=== PATIENT | female | born 1950 | race Caucasian/White ===

== ENCOUNTER → 2016-09-24 | Outpatient (CLI) | payer BC ==
[~2016-09-24] MED LIST: CLR10 PO; IBUP-103 PO; PATADAY 2% TOP; TRIA3AER NAE
[2016-09-24 12:02] LABS: ALT/SGPT 51 U/L (12-78); AST/SGOT 28 U/L (15-37); BLOOD UREA NITROGEN 19 mg/dl (7-18); CARBON DIOXIDE 27 mmol/L (21-32); CHLORIDE 106 mmol/L (98-107); CREATININE 0.93 mg/dl (0.60-1.20); GLUCOSE 98 mg/dl (70-99); POTASSIUM 3.6 mmol/L (3.5-5.1); SODIUM 143 mmol/L (136-145)
[2016-09-24 12:13] LABS: ALB/GLOB RATIO 1.1 (0.9-2); ALKALINE PHOSPHATASE 95 U/L (45-117); CHOLESTEROL 241 mg/dl (0-200); CHOLESTEROL/HDL RATIO 3.8; HDL CHOLESTEROL 64 mg/dl; LDL CHOLESTEROL CALCULATED 132 mg/dl; TRIGLYCERIDES 225 mg/dl (0-150); VERY LOW DENSITY LIPOPROT CALC 45 mg/dl
== END | disposition home or self-care (01) ==
LOC: C.LABBC 08:02
PROVIDERS: ATTEND Internal Medicine
DX: E78.5 Hyperlipidemia, unspecified (principal); E03.9 Hypothyroidism, unspecified

== ENCOUNTER → 2016-11-07 | Outpatient (CLI) | payer BC ==
[2016-11-07 11:27] LABS: BASO % 0.4 %; BASO ABS # 0.03 K/uL (0-0.2); COMPLETE YES; EOS % 3.7 %; HEMATOCRIT 43.2 % (37-47); IG% 0.1 %; LYMPH ABS # 2.23 K/uL (1.2-3.4); MEAN CELL VOLUME 90.6 fL (80-100); MEAN CORPUSCULAR HEMOGLOBIN 30.4 pg (25-34); MEAN CORPUSCULAR HGB CONC 33.6 g/dl (32-36); MEAN PLATELET VOLUME 11.8 fL (7.4-10.4); MONO % 9.6 %; NEUT % 53.2 %; PLATELET COUNT 279 K/uL (130-400); RED BLOOD COUNT 4.77 M/uL (4.2-5.4); WHITE BLOOD COUNT 6.75 K/uL (4.8-10.8)
[2016-11-07 11:36] LABS: THYROID STIMULATING HORMONE 2.4 uIu/ml (0.300-4.500)
== END | disposition home or self-care (01) ==
LOC: C.LABBC 07:58
PROVIDERS: ATTEND Internal Medicine
DX: E03.9 Hypothyroidism, unspecified (principal); R10.13 Epigastric pain

== ENCOUNTER → 2017-01-03 | Outpatient (CLI) | payer BC | END | disposition home or self-care (01) | LOC: C.LABBC 07:39 | PROVIDERS: ATTEND Internal Medicine | DX: E03.9 Hypothyroidism, unspecified (principal) ==

== ENCOUNTER → 2017-02-08 | Outpatient (CLI) | payer BC ==
--- NOTE | 2017-02-08 16:38 | MAMMOGRAPHY REPORT ---
BILATERAL DIGITAL SCREENING MAMMOGRAM WITH CAD: 02/08/2017 CLINICAL HISTORY: Routine screening. Patient has no complaints. TECHNIQUE: Current study was also evaluated with a Computer Aided Detection (CAD) system. Bilateral CC and MLO views were obtained. COMPARISON: Comparison is made to exams dated: 01/11/2016 mammogram, 12/27/2014 mammogram, 12/24/2013 fátima mogram, 11/04/2012 mammogram, 10/30/2011 mammogram, and 08/21/2010 mammogram - [facility]. BREAST COMPOSITION: The tissue of both breasts is heterogeneously dense, which may obscure small mas ses. FINDINGS: No suspicious masses, calcifications, or areas of architectural distortion are noted in ei ther breast. There has been no significant interval change compared to prior exams. IMPRESSION: ACR BI-RADS CATEGORY 1: NEGATIVE There is no mammographic evidence of malignancy. A 1 year screening mammogram is recommended. The pa tient will receive written notification of the results. Approximately 10% of breast cancers are not detected with mammography. A negative mammographic report should not delay biopsy if a clinically suggestive mass is present. Leighann Gonzalez M.D. /:02/08/2017 16:13:40 Veterinarian: Samanta WHITE(Gideon)(Gin)(BD), [facility] letter sent: Normal 1/2 BI-RADS Code: ACR BI-RADS Category 1: Negative
== END | disposition home or self-care (01) ==
LOC: C.MAMM 14:49
PROVIDERS: ATTEND Obstetrics & Gynecology
DX: Z12.31 Encounter for screening mammogram for malignant neoplasm of breast (principal)

== ENCOUNTER → 2017-06-10 | Outpatient (CLI) | payer BC | END | disposition home or self-care (01) | LOC: C.LABBC 08:08 | PROVIDERS: ATTEND Internal Medicine | DX: E03.9 Hypothyroidism, unspecified (principal) ==

== ENCOUNTER → 2017-09-26 | Outpatient (CLI) | payer OTHER ==
[2017-09-26 10:54] LABS: HEMATOCRIT 43.4 % (37-47); HEMOGLOBIN 14.5 g/dL (12.0-16.0); MEAN CELL VOLUME 91.8 fL (80-100); MEAN CORPUSCULAR HEMOGLOBIN 30.7 pg (25-34); MEAN CORPUSCULAR HGB CONC 33.4 g/dl (32-36); MEAN PLATELET VOLUME 11.7 fL (7.4-10.4); PLATELET COUNT 283 K/uL (130-400); RED CELL DISTRIBUTION WIDTH CV 14.8 % (11.5-14.5); RED CELL DISTRIBUTION WIDTH SD 50.1 fL (36.4-46.3); WHITE BLOOD COUNT 6.07 K/uL (4.8-10.8)
[2017-09-26 11:30] LABS: ALBUMIN 3.9 gm/dl (3.4-5.0); ALT/SGPT 31 U/L (12-78); AST/SGOT 20 U/L (15-37); BLOOD UREA NITROGEN 15 mg/dl (7-18); CALCIUM 8.7 mg/dl (8.5-10.1); CARBON DIOXIDE 27 mmol/L (21-32); CREATININE 0.87 mg/dl (0.60-1.20); GLUCOSE 96 mg/dl (70-99); POTASSIUM 3.8 mmol/L (3.5-5.1); SODIUM 139 mmol/L (136-145)
[2017-09-26 11:41] LABS: ALKALINE PHOSPHATASE 83 U/L (45-117); CHOLESTEROL 220 mg/dl (0-200); LDL CHOLESTEROL CALCULATED 118 mg/dl; TOTAL PROTEIN 7.3 gm/dl (6.4-8.2)
== END | disposition home or self-care (01) ==
LOC: C.LABBC 08:04
PROVIDERS: ATTEND Internal Medicine
DX: K76.0 Fatty (change of) liver, not elsewhere classified (principal); E78.5 Hyperlipidemia, unspecified; E03.9 Hypothyroidism, unspecified

== ENCOUNTER → 2017-10-10 | Outpatient (CLI) | payer OTHER ==
--- NOTE | 2017-10-10 14:52 | DIAGNOSTIC IMAGING REPORT ---
CHEST 2 VIEWS ROUTINE HISTORY: 67 years-old Female WHEEEZING acute wheezing COMPARISON: Chest radiographs 05/24/2014 TECHNIQUE: PA and lateral views of the chest FINDINGS: Cardiomediastinal and hilar silhouettes are within normal limits. Mild hyperinflation. There is no pneumothorax, pleural effusion, focal airspace consolidation or overt pulmonary edema. Bones of the chest appear grossly intact. IMPRESSION: Mild hyperinflation without acute process. The above report was generated using voice recognition software. It may contain grammatical, syntax or spelling errors. Electronically signed by: Aj Gutiérrez M.D. 10/10/2017 2:51 PM Dictated Date/Time: 10/10/2017 2:46 PM
== END | disposition home or self-care (01) ==
LOC: C.RADBC 14:33
PROVIDERS: ATTEND Internal Medicine
DX: R06.2 Wheezing (principal)

== ENCOUNTER → 2018-04-14 | Outpatient (CLI) | payer OTHER ==
--- NOTE | 2018-04-15 06:58 | MAMMOGRAPHY REPORT ---
BILATERAL DIGITAL SCREENING MAMMOGRAM TOMOSYNTHESIS WITH CAD: 04/14/2018 CLINICAL HISTORY: Routine screening. TECHNIQUE: The study was acquired using full field digital technology and interpreted from soft copy. Breast tomosynthesis in addition to standard 2D mammography was performed. Current study was also ev aluated with a Computer Aided Detection (CAD) system. COMPARISON: Comparison is made to exams dated: 02/08/2017 mammogram, 01/11/2016 mammogram, 12/27/2014 ma mmogram, 12/24/2013 mammogram, 11/04/2012 mammogram, and 10/30/2011 mammogram - [facility]. BREAST COMPOSITION: The tissue of both breasts is heterogeneously dense, which may obscure small mass es. FINDINGS: A linear scar marker overlies the periareolar right breast. There is stable focal asymmetr y in the upper outer posterior right breast. No suspicious mass, architectural distortion or cluster of microcalcifications is seen. IMPRESSION: ACR BI-RADS CATEGORY 1: NEGATIVE There is no mammographic evidence of malignancy. A 1 year screening mammogram is recommended.( 019) The patient will receive written notification of the results. Some breast cancers are not detected with mammography. A negative mammographic report should not bart y biopsy if a clinically suggestive mass is present. Sandy Bell M.D. ay/:04/14/2018 08:13:30 Creative Engagement Director: RT Beny(Gideon)(M), [facility] letter sent: Normal 1/2 BI-RADS Code: ACR BI-RADS Category 1: Negative
== END | disposition home or self-care (01) ==
LOC: C.MAMM 07:44
PROVIDERS: ATTEND Internal Medicine
DX: Z12.31 Encounter for screening mammogram for malignant neoplasm of breast (principal)

== ENCOUNTER → 2018-04-16 | Outpatient (CLI) | payer OTHER | END | disposition home or self-care (01) | LOC: C.LABBC 08:11 | PROVIDERS: ATTEND Internal Medicine | DX: E03.9 Hypothyroidism, unspecified (principal); E78.5 Hyperlipidemia, unspecified ==

== ENCOUNTER 2019-03-25 11:26 | Observation (INO) ==
[2019-03-25 12:21] LABS: Basophils # (auto) 0.01 K/uL (0-0.2); Basophils % (auto) 0.1 %; Eosinophils # (auto) 0.07 K/uL (0-0.5); Eosinophils % (auto) 0.7 %; Hematocrit (blood only) 43.6 % (37-47); Hemoglobin 14.9 g/dL (12.0-16.0); Immature Granulocytes # (auto) 0.03 K/uL (0.00-0.02); Immature Granulocytes % (auto) 0.3 %; Lymphocytes # (auto) 1.63 K/uL (1.2-3.4); Mean Corpuscular Hgb Conc 34.2 g/dL (32-36); Mean Corpuscular Volume 89.7 fL (80-100); Mean Platelet Volume 11.3 fL (7.4-10.4); Monocytes # (auto) 0.61 K/uL (0.11-0.59); Neutrophils # (auto) 7.83 K/uL (1.4-6.5); Neutrophils % (auto) 76.9 %; Platelet Count 255 K/uL (130-400); RDW Coefficient of Variation 14.2 % (11.5-14.5); RDW Standard Deviation 46.9 fL (36.4-46.3); Red Blood Count 4.86 M/uL (4.2-5.4); White Blood Count 10.18 K/uL (4.8-10.8)
[2019-03-25 12:43] LABS: Albumin Globulin Ratio 1.2 (0.9-2); Albumin Level 4.3 gm/dl (3.4-5.0); BUN Creatinine Ratio 14.9 (10-20); Bilirubin,Total 0.5 mg/dl (0.2-1); Calcium 9.6 mg/dl (8.5-10.1); Creatinine Clr Calc Pharmacy 63.3 ml/min; Est GFR (African American) 65.9; Est GFR (Non-African American) 56.9; Globulin 3.7 gm/dl (2.5-4.0)
[2019-03-25 12:48] LABS: Potassium 4.2 mmol/L (3.5-5.1)
[2019-03-25 12:53] LABS: Magnesium 2.3 mg/dl (1.8-2.4)
--- NOTE | 2019-03-25 13:53 | CT Scan Report ---
HEAD CT NONCONTRAST CT DOSE: 537.48 mGy.cm HISTORY: syncope TECHNIQUE: Multiaxial CT images of the head were performed without the use of intravenous contrast. A utomated exposure control was utilized for this study. A dose lowering technique was utilized adheri ng to the principles of ALARA. Comparison: None. Findings: The paranasal sinuses and mastoid air cells are clear. The calvarium and skull base are int act. The ventricles and sulci are within normal limits. There is no mass, hematoma, midline shift, or acute infarct. Impression: No acute intracranial abnormality. Electronically signed by: Zeferino Craig M.D. 03/25/2019 1:51 PM
[2019-03-25 14:33] LABS: Appearance Urine Clear (Clear); Bacteria Urine Automated Negative (Negative); Bilirubin Urine Negative (Negative); Blood Urine Negative (Negative); Cast Urine Automated 0 /lpf (0-5); Color Urine Yellow; Glucose Urine UA Negative (Negative); Ketones Urine Negative (Negative); Leukocyte Esterase Urine 1+ (Negative); Nitrite Urine Negative (Negative); Protein Urine Negative (Negative); RBC Urine Automated 0-4 /hpf (0-4); Specific Gravity Urine 1.009 (1.000-1.030); Urobilinogen Urine Negative (Negative)
--- NOTE | 2019-03-25 14:52 | History & Physical Report ---
Date of Service March 25, 2019 Assessment & Plan (1) Altered mental status: Resolved. Thought to be due to transient hypoglycemia. Will obtain cardiac echo and carotid Doppler study Present on Admission?: Yes (2) Hypoglycemia: Suspected transient hypoglycemic episode this morning. IV fluids with dextrose. Monitor orthostatic vital signs Present on Admission?: Yes (3) Primary hypothyroidism: Check free T4 level. Continue replacement therapy Present on Admission?: Yes (4) DVT prophylaxis: Early ambulation Present on Admission?: Yes History of Present Illness Chief Complaint: Altered mental status Primary Care Provider: Andrew Regalado MD 68-year-old white female in good health who is exercising today when she was noted by her monkey trainer to have altered mental status, weakness, confusion. There was no syncope. Her symptoms resolved after drinking Gatorade. She currently is asymptomatic. She cannot recollect the event. She denies feeling any chest pain, shortness of breath, palpitations. She ate a breakfast of toast and orange juice at approximately 8 AM and her symptoms occurred this morning at 10 AM with exercise. I suspect she had transient hypoglycemia causing the transient altered mental status. She will be placed in observation for further assessment. Head CT scan is unremarkable. EKG reveals normal sinus rhythm with nonspecific T wave changes. Urine analysis is pending. Allergies Allergy/AdvReac Type Severity Reaction Status Date / Time Sulfa (Sulfonamide Allergy Mild Unknown Unverified 03/25/19 13:01 Antibiotics) azithromycin Allergy Unknown Verified 03/25/19 13:01 X-RAY DYE Allergy Severe ANAPHYLAXIS Uncoded 03/25/19 13:01 [id number] Allergy Intermediate unknown Uncoded 03/25/19 13:01 [id number] Allergy Mild Unknown Uncoded 03/25/19 13:01 IODINE SOLUTIONS Allergy Unknown from 's Uncoded 03/25/19 13:01 ofc record Home Medications Home Medications Medication Instructions Recorded Confirmed Type fluticasone propionate 50 1 sprays INTNAS DAILY 03/14/19 03/25/19 History mcg/actuation nasal spray,suspension levothyroxine 75 mcg tablet 75 mcg PO DAILY #90 tab 03/14/19 03/25/19 History Past Med/Surg History Medical History Primary hypothyroidism (Chronic) Hypoglycemia (Acute) Altered mental status (Acute) S/P tooth extraction Surgical History History of breast surgery S/P colonoscopy S/P dilation and curettage S/P hysterectomy S/P tonsillectomy and adenoidectomy Family History Father Lung cancer Hypertension FH: CABG (coronary artery bypass surgery) Coronary heart disease Mother Lung cancer Valvular heart disease Sister Hyperlipidemia Son Hyperlipidemia Grandmother Diabetes Social History Communication Ability: Effective Visual Impairment: No Limitations Hearing Ability: Normal marital status: Single current occupational status: employed Feels Safe at Home: Yes Smoking Status: Never smoker Hx Alcohol Use: Yes Alcohol Intake Frequency Comment: Social Drinker Hx Substance Use: No Physical Activity Frequency: Other Physical Activity Frequency Comment: Regularly Review of Systems Review of Systems: Constitutional-no fever or chills ENT-no blurred vision, no double vision, no epistaxis, no sore throat Respiratory-no cough, no wheezing, no shortness of breath Cardiac-no palpitations, no chest pain, no syncope GI-no nausea, vomiting, diarrhea, melena, hematochezia -no urinary retention, no urinary incontinence, no dysuria, no hematuria Musculoskeletal-no joint pain, no muscle tenderness Skin-no bruising, no rashes, no pruritus Neuro-transient confusion and generalized weakness this morning which has resolved Psych-no depression, no anxiety Physical Exam Physical Exam: General-alert and oriented x3, no fevers, no chills HEENT-head atraumatic and normocephalic, TMs intact bilaterally, pupils equal and reactive to light, extraocular muscles intact Neck-no lymphadenopathy or thyromegaly, trachea midline Chest-clear to auscultation percussion. No rales wheezing or rhonchi Cardiac-regular rate and rhythm, normal S1 and S2, no murmurs Abdomen-normal bowel sounds, nontender, no hepatosplenomegaly Extremities-no cyanosis, clubbing, or edema Neuro-cranial nerves II through XII intact, motor and sensory function within normal limits, strength symmetrical 5/5, no focal deficits Psych-normal affect, normal mood Results & Data Vital Signs (Past 12 Hours) Vital Signs Temp Pulse Pulse Resp BP BP Pulse Ox 03/25/19 13:29 93 H 18 108/80 96 03/25/19 11:31 36.6 C 96 H 16 174/83 H 99 Laboratory Results 03/25/19 12:09 03/25/19 12:09 PG Care Time/CCT Total # of Minutes Spent Total Time Spent with Patient: Total time spent is greater than 50% in coordination of care (as documented) at patient's floor/unit and/or counseling patient:
[2019-03-25] MEDS ORDERED: LORazepam 1 MG TAB ONE (15:59)
[2019-03-25] MEDS ORDERED: LORazepam 0.5 MG TAB ONE (15:59)
[2019-03-25] MEDS ORDERED: LORazepam 1 MG TAB PO STA (16:06)
[2019-03-25] MEDS ORDERED: ALUMINUM/MAGNESIUM SUSP 30 ML UDC PO PRN (17:14)
[2019-03-25] MEDS ORDERED: ONDANSETRON INJ 2 MG/ML 2 ML VIAL IV PRN (17:14)
[2019-03-25] MEDS ORDERED: ACETAMINOPHEN 325 MG TAB PO PRN (17:14)
--- NOTE | 2019-03-25 17:49 | Emergency Department Note ---
Entered by Ravinder Capone acting as a scribe for History of Present Illness General Chief complaint: Syncope Stated complaint: BLACKED OUT, MEMORY LOSS, CONFUSION Time Seen by Provider: 03/25/19 12:11 Source: patient History of Present Illness Provider complaint: Syncope Onset (ago): hour(s) (Just prior to arrival) Location: head Pain Consistency: + other (Episodic ) Maximum Pain Intensity: 0 Relieved By: + none Exacerbated By: + none Associated symptoms: + weakness and + other (Positive dizzy; Positive lightheadedness ); no chest pain and no shortness of breath The patient is a 68 year old female who presents to the Emergency Room following a syncopal episode that took place while she was at the gym just prior to arrival. The patient states she was exercising when she became dizzy, lightheaded and passed out. She states that people at the gym helped her sit down and gave her Gatorade. The patient notes that she does not remember the event and is reporting the history based on what she was told. The patient reports that she did not hit her head during the episode. The patient denies any chest pain or shortness of breath during the incident as well as any hemoptysis. Prior to going to the gym, the patient did have some toast and orange juice. The patient notes she has borderline HLD but does not take any medications. The patient did mention that she traveled to [place], [place] about a month ago but has not had any long distance travel since. The patient has no history of HTN or DM but does take Thyroxine daily. She does have a family history of CAD with her father having cardiac issues, but no history of CO. Home Medications Home Medications Medication Instructions Recorded Confirmed Type fluticasone propionate 50 1 sprays INTNAS DAILY 03/14/19 03/25/19 History mcg/actuation nasal spray,suspension levothyroxine 75 mcg tablet 75 mcg PO DAILY #90 tab 03/14/19 03/25/19 History Allergies Allergy/AdvReac Type Severity Reaction Status Date / Time Sulfa (Sulfonamide Allergy Mild Unknown Unverified 03/25/19 13:01 Antibiotics) azithromycin Allergy Unknown Verified 03/25/19 13:01 X-RAY DYE Allergy Severe ANAPHYLAXIS Uncoded 03/25/19 13:01 [id number] Allergy Intermediate unknown Uncoded 03/25/19 13:01 [id number] Allergy Mild Unknown Uncoded 03/25/19 13:01 IODINE SOLUTIONS Allergy Unknown from 's Uncoded 03/25/19 13:01 ofc record Past Med/Surg History Medical History Primary hypothyroidism (Chronic) Hypoglycemia (Acute) Altered mental status (Acute) S/P tooth extraction Surgical History History of breast surgery S/P colonoscopy S/P dilation and curettage S/P hysterectomy S/P tonsillectomy and adenoidectomy Family History Father Lung cancer Hypertension FH: CABG (coronary artery bypass surgery) Coronary heart disease Mother Lung cancer Valvular heart disease Sister Hyperlipidemia Son Hyperlipidemia Grandmother Diabetes Social History Communication Ability: Effective Visual Impairment: No Limitations Hearing Ability: Normal marital status: Single current occupational status: employed Feels Safe at Home: Yes Smoking Status: Never smoker Hx Alcohol Use: Yes Alcohol Intake Frequency Comment: Social Drinker Hx Substance Use: No Physical Activity Frequency: Other Physical Activity Frequency Comment: Regularly Review of Systems See HPI for pertinent positives & negatives. and A total of 10 systems reviewed and were otherwise negative Physical Exam Vital Signs Vital Signs - 24 hr 03/25/19 11:31 03/25/19 12:14 03/25/19 12:15 Temperature 36.6 C Temperature Source Oral Oral Sepsis New/Unexplained Change in Mental Status No Sepsis Action Taken by Nursing No Action Required Pulse Rate - Lying 90 Pulse Rate - Sitting 97 H Pulse Rate - Standing 96 H Pulse Rate 96 H Pulse Rate [Finger] Pulse Rhythm [Finger] Pulse Strength [Finger] Respiratory Rate 16 Respiratory Effort / Characteristics Respiratory Depth Respiratory Pattern Blood Pressure - Lying 159/81 H Blood Pressure - Sitting 174/85 H Blood Pressure- Standing 170/94 H Blood Pressure 174/83 H Blood Pressure [Right Arm] Blood Pressure Mean 113 Blood Pressure Mean [Right Arm] Blood Pressure Position [Right Arm] Pulse Oximetry 99 Oxygen Delivery Method Room Air Room Air 03/25/19 13:29 03/25/19 15:00 Temperature Temperature Source Sepsis New/Unexplained Change in Mental Status Sepsis Action Taken by Nursing Pulse Rate - Lying Pulse Rate - Sitting Pulse Rate - Standing Pulse Rate Pulse Rate [Finger] 93 H 78 Pulse Rhythm [Finger] Regular Pulse Strength [Finger] Normal Respiratory Rate 18 20 Respiratory Effort / Characteristics Non-Labored Spontaneous Respiratory Depth Normal Respiratory Pattern Regular Blood Pressure - Lying Blood Pressure - Sitting Blood Pressure- Standing Blood Pressure Blood Pressure [Right Arm] 108/80 149/79 H Blood Pressure Mean Blood Pressure Mean [Right Arm] 89 102 Blood Pressure Position [Right Arm] Sitting Pulse Oximetry 96 98 Oxygen Delivery Method Room Air GENERAL: She is oriented to person, place, and time. She appears well-developed and well-nourished. She does not appear distressed. HENT: Exam performed. Head: Normocephalic and atraumatic. Right Ear: External ear normal. No mastoid tenderness. Left Ear: External ear normal. No mastoid tenderness. Mouth/Throat: The oropharynx is clear and moist. No trismus in the jaw. No dental abscesses or uvula swelling. No oropharyngeal exudate or tonsillar abscesses. EYES: Conjunctivae and EOM are normal. Pupils are equal, round, and reactive to light. Right eye exhibits no discharge. Left eye exhibits no discharge. No scleral icterus. NECK: Normal range of motion. Neck supple. No JVD present. No spinous process tenderness present. No carotid bruit present. No rigidity. No tracheal deviation and normal range of motion present. No Brudzinski's sign and no Kernig's sign noted. CV: Normal rate, regular rhythm, normal heart sounds and intact distal pulses. There is no peripheral edema. Palpable radial pulses bue. PULM/CHEST: Effort normal and breath sounds normal. No respiratory distress. No stridor. She has no wheezes. She has no rales. Chest Wall: She exhibits no tenderness. ABD: The abdomen is soft. Bowel sounds are normal. She has no distension. No mass is present. There is no tenderness. There is no rebound, no guarding, no Sheehan's sign and no tenderness at McBurney's point. Rovsig negative MUSC/SKEL: Normal range of motion. There is no peripheral edema, tenderness or deformity. LYMPH: No cervical adenopathy. NEURO: She is alert and oriented to person, place, and time. She has normal strength. No cranial nerve deficit or sensory deficit. Coordination and gait normal. GCS eye subscore is 4. GCS verbal subscore is 5. GCS motor subscore is 6. cerbellar tests wnl. SKIN: Skin is warm and dry. She is not diaphoretic. PSYCH: She has a normal mood and affect. Her behavior is normal. Judgment and thought content normal. Course 1213: Past medical records reviewed. The patient was evaluated in room B03, and a complete history and physical examination were performed. 1400: Vital signs are stable. Labs and imaging are WNL. The patient will be admitted given her exertional syncope for an echo and further observation. I spoke to Dr. Jovanny Viera [facility] Hospitalist about the patient's case and he will be accepting her for further evaluation. Consultations Consultation #1: Vital signs are stable. Labs and imaging are WNL. The patient will be admitted given her exertional syncope for an echo and further observation. I spoke to Dr. Jovanny Viera [facility] Hospitalist about the patient's case and he will be accepting her for further evaluation. Time: 14:00 Administered Medications Discontinued Medications Lorazepam (Ativan) Confirm Administered Dose 0.5 mg .ROUTE .STK-MED ONE Stop: 03/25/19 16:00 Last Admin: 03/25/19 16:01 Dose: 0.5 mg Documented by: [id number] Lorazepam (Ativan) Confirm Administered Dose 2 mg .ROUTE .STK-MED ONE Stop: 03/25/19 16:00 Last Admin: 03/25/19 16:01 Dose: 2 mg Documented by: [id number] Lorazepam (Ativan) 2.5 mg PO NOW STA Stop: 03/25/19 16:07 Last Admin: 03/25/19 16:07 Dose: Not Given Documented by: [id number] Medical Decision Making Medical Records Attestation: I reviewed the patient's medical records. Home Medications Current Medication List: was personally reviewed by me Laboratory Data Attestation: I reviewed the patient's lab results. Result diagrams: 03/25/19 12:09 03/25/19 12:09 Lab Results 03/25/19 03/25/19 03/25/19 Range/Units 12:09 12:09 13:44 WBC 10.18 (4.8-10.8) K/uL RBC 4.86 (4.2-5.4) M/uL Hgb 14.9 (12.0-16.0) g/dL Hct 43.6 (37-47) % MCV 89.7 (80-100) fL MCH 30.7 (25-34) pg MCHC 34.2 (32-36) g/dL RDW Std Deviation 46.9 H (36.4-46.3) fL RDW Coeff of Digna 14.2 (11.5-14.5) % Plt Count 255 (130-400) K/uL MPV 11.3 H (7.4-10.4) fL Immature Gran % (Auto) 0.3 % Neut % (Auto) 76.9 % Lymph % (Auto) 16.0 % [place] % (Auto) 6.0 % Eos % (Auto) 0.7 % Baso % (Auto) 0.1 % Immature Gran # (Auto) 0.03 H (0.00-0.02) K/uL Neut # (Auto) 7.83 H (1.4-6.5) K/uL Lymph # (Auto) 1.63 (1.2-3.4) K/uL [place] # (Auto) 0.61 H (0.11-0.59) K/uL Eos # (Auto) 0.07 (0-0.5) K/uL Baso # (Auto) 0.01 (0-0.2) K/uL Sodium 138 (136-145) mmol/L Potassium 4.2 (3.5-5.1) mmol/L Chloride 105 (98-107) mmol/L Carbon Dioxide 26 (21-32) mmol/L Anion Gap 7.0 (3-11) BUN 15 (7-18) mg/dl Creatinine 1.02 (0.6-1.2) mg/dl Est Cr Clr Drug Dosing 63.3 ml/min Est GFR ( Amer) 65.9 Est GFR (Non-Af Amer) 56.9 BUN/Creatinine Ratio 14.9 (10-20) Glucose 107 H (70-99) mg/dl Calcium 9.6 (8.5-10.1) mg/dl Magnesium 2.3 (1.8-2.4) mg/dl Total Bilirubin 0.5 (0.2-1) mg/dl AST 18 (15-37) U/L ALT 24 (12-78) U/L Alkaline Phosphatase 82 (45-117) U/L Total Protein 8.0 (6.4-8.2) gm/dl Albumin 4.3 (3.4-5.0) gm/dl Globulin 3.7 (2.5-4.0) gm/dl Albumin/Globulin Ratio 1.2 (0.9-2) Urine Color Yellow Urine Appearance Clear (Clear) Urine pH 7.0 (4.5-7.5) Ur Specific [place] 1.009 (1.000-1.030) Urine Protein Negative (Negative) Urine Glucose (UA) Negative (Negative) Urine Ketones Negative (Negative) Urine Blood Negative (Negative) Urine Nitrite Negative (Negative) Urine Bilirubin Negative (Negative) Urine Urobilinogen Negative (Negative) Ur Leukocyte Esterase 1+ H (Negative) Urine WBC (Auto) 1-5 (0-5) /hpf Urine RBC (Auto) 0-4 (0-4) /hpf U Hyaline Cast (Auto) 0 (0-5) /lpf U Epithel Cells (Auto) 10-20 H (0-5) /lpf Urine Bacteria (Auto) Negative (Negative) Imaging Data Radiologist's Impression: Radiology results as stated below per my review and the radiologist's interpretation: HEAD CT NONCONTRAST CT DOSE: 537.48 mGy.cm HISTORY: syncope TECHNIQUE: Multiaxial CT images of the head were performed without the use of intravenous contrast. Automated exposure control was utilized for this study. A dose lowering technique was utilized adhering to the principles of ALARA. Comparison: None. Findings: The paranasal sinuses and mastoid air cells are clear. The calvarium and skull base are intact. The ventricles and sulci are within normal limits. There is no mass, hematoma, midline shift, or acute infarct. Impression: No acute intracranial abnormality. Electronically signed by: Zeferino Craig M.D. 03/25/2019 1:51 PM ECG Data Attestation: I personally reviewed and interpreted this ECG as follows: Indication: syncope Rate (beats per minute): 86 Rhythm: normal sinus Findings: + other (NM, QTC, QRS intervals WNL); no ST depression and no ST elevation Blood Pressure Blood Pressure Findings: Normal blood pressure MDM Narrative Vital signs are stable. Labs and imaging are WNL. The patient will be admitted given her exertional syncope for an echo and further observation. I spoke to Dr. Petty - [facility] Hospitalist about the patient's case and he will be accepting her for further evaluation. Impression & Plan Syncope Discharge Plan Visit Data *Final* Discharge Date/Time: 03/25/19 17:15 Chief Complaint: Syncope Stated Complaint: BLACKED OUT, MEMORY LOSS, CONFUSION ED Provider: Alejandro Waterman Discharge Problem: Syncope Patient Disposition: Admitted As Inpatient Discharge Instructions Interventions: ED Discharge Assessment Last Done: 03/25/19 17:15 Discharge Problem: Syncope Qualifiers: Syncope type: unspecified Qualified Code(s): R55 - Syncope and collapse The scribe's documentation has been prepared under my direction and personally reviewed by me in its entirety. I confirm that the note above accurately reflects all work, treatment, procedures, and medical decision making performed by me.
--- NOTE | 2019-03-25 18:26 | Ultrasound Report ---
ULTRASOUND OF THE CAROTID ARTERIES CLINICAL HISTORY: Near-syncope. COMPARISON STUDY: No priors. TECHNIQUE: Real-time, grayscale, and color Doppler sonography of the carotid arteries is performed. I mages are reviewed in the transverse and longitudinal planes. FINDINGS: Blood pressures were not assessed. The carotid arteries are patent bilaterally and demonstrate antegrade flow. There is no significant a therosclerotic plaque identified. Normal doppler arterial waveforms are seen throughout. Velocity alem surements are listed below. Common carotid peak systolic velocity (cm/sec): RIGHT: 70 LEFT: 64 ICA proximal peak systolic velocity (cm/sec): RIGHT: 53 LEFT: 44 ICA mid peak systolic velocity (cm/sec): RIGHT: 65 LEFT: 69 ICA distal peak systolic velocity (cm/sec): RIGHT: 84 LEFT: 7 day ICA/CC peak systolic ratio: RIGHT: 1.2 LEFT: 1.1 Antegrade flow was shown in the vertebral arteries. The external carotid arteries are patent. IMPRESSION: 1. There is no sonographic evidence of hemodynamically significant stenosis in the right or left vázquez tid arterial system. 2. Antegrade flow is shown in the vertebral arteries. Electronically signed by: Eulalio Arguelles M.D. 03/25/2019 6:24 PM
[2019-03-25] MEDS: D5W AND NSS 1,000 ML IV SCH (18:46)
[2019-03-26 06:17] LABS: Basophils # (auto) 0.02 K/uL (0-0.2); Basophils % (auto) 0.3 %; Eosinophils # (auto) 0.18 K/uL (0-0.5); Eosinophils % (auto) 2.7 %; Hematocrit (blood only) 43.2 % (37-47); Hemoglobin 14.5 g/dL (12.0-16.0); Immature Granulocytes # (auto) 0.01 K/uL (0.00-0.02); Immature Granulocytes % (auto) 0.1 %; Lymphocytes # (auto) 2.12 K/uL (1.2-3.4); Lymphocytes % (auto) 31.6 %; Mean Corpuscular Hgb Conc 33.6 g/dL (32-36); Mean Corpuscular Volume 90.8 fL (80-100); Mean Platelet Volume 11.5 fL (7.4-10.4); Monocytes # (auto) 0.55 K/uL (0.11-0.59); Monocytes % (auto) 8.2 %; Neutrophils # (auto) 3.83 K/uL (1.4-6.5); Neutrophils % (auto) 57.1 %; Platelet Count 252 K/uL (130-400); RDW Coefficient of Variation 14.4 % (11.5-14.5); RDW Standard Deviation 48.4 fL (36.4-46.3); Red Blood Count 4.76 M/uL (4.2-5.4); White Blood Count 6.71 K/uL (4.8-10.8)
[2019-03-26] MEDS ORDERED: LEVOTHYROXINE SODIUM 75 MCG TABLET PO SCH (06:30)
[2019-03-26] MEDS: D5W AND NSS 1,000 ML IV SCH (06:46)
[2019-03-26 06:59] LABS: Calcium 8.6 mg/dl (8.5-10.1); Est GFR (African American) 82.2; Est GFR (Non-African American) 70.9
[2019-03-26] MEDS ORDERED: FLUTICASONE PROPIONATE NA SPR 16 GM BTL NAE SCH (09:00)
--- NOTE | 2019-03-26 15:24 | Cardiology Consultation ---
Date of Consultation March 26, 2019 Assessment & Plan (1) Altered mental status: She had an episode of unresponsiveness which I hesitate to call syncope since it is not clear that she lost consciousness, however she clearly had some sort of event that she cannot remember but was witnessed and did not seem to be a severe hemodynamic abnormality. I cannot tell from her monitoring whether she had an arrhythmia or not, the fidelity is not clear enough. Unfortunately we do not know her blood pressure either. There is a description that her color was good, suggesting it was not severe hypotension. In any case it is the only event like this she has had, it occurred several days after diarrheal illness and was associated with fairly strenuous activity. At this point I do not think I would pursue further cardiac evaluation. If she had another episode I think we would need to reevaluate. (2) ECG abnormality: Her electrocardiogram is essentially normal. She does have some minor T wave abnormalities, there is similar on the 2 electrocardiograms here and are in V1 through V3 primarily. I did directly compare these findings to her electrocardiogram in 2013 and they were similar, on that prior electrocardiogram she had inferior T wave abnormalities as well. I think all this is minor and I would not consider further evaluation based on it. History of Present Illness Reason for Consultation: Transient unresponsiveness Attending Physician: Andrew Guthrie History of Present Illness This is a very pleasant 68-year-old woman who had a transient event of unresponsiveness which was witnessed by her retail personal banker as it occurred toward the end of an exercise session. He provided a description of it, she remembers part of it but not the entire event. She does not believe she truly lost consciousness and this is never happened before. Evidently toward the end of her exercise routine she began to feel a little bit lightheaded and she rested and drink Gatorade several times but the symptoms were recurring, however she was able to exercise for several minutes around that time. She then evidently became quite lightheaded and sat down on the sofa, evidently she became unresponsive for short period of time but the note states that her color was good (I do not believe a pulse was checked) and the episode was probably relatively brief although I do not have a specific time. She was wearing a monitor of sorts and it shows her heart rate with exercise, typically her heart rate got up to about 150 although there is a very brief episode which cannot be expanded in the trend which suggests a heart rate of over 200. She thought this was artifact from taking the monitor off, however on review of the trend this appears to occur before the monitor was removed based the fact that there are heart rates in a descending pattern from then until later on when the monitor was removed. It could be artifact, but the quality is not evidently such that we can evaluate the rhythm. She does not have a history of palpitations, this is never happened before although she does feel funny when she sees blood and does feel little lightheaded in those situations. She has never passed out. She has noted no change in her exercise ability. She does note that she had a diarrheal illness several days before this event. She did have a stress echo June 22, 2014, this was negative at 94 % of her maximum predicted heart rate. She also had an event monitor performed on July 29, 2001, I cannot tell why that was done or for how long it was worn but there was no arrhythmia identified. Allergies Allergy/AdvReac Type Severity Reaction Status Date / Time Sulfa (Sulfonamide Allergy Mild Unknown Unverified 03/31/19 16:08 Antibiotics) azithromycin Allergy Unknown Verified 03/31/19 16:08 X-RAY DYE Allergy Severe ANAPHYLAXIS Uncoded 03/31/19 16:08 [id number] Allergy Intermediate unknown Uncoded 03/31/19 16:08 [id number] Allergy Mild Unknown Uncoded 03/31/19 16:08 IODINE SOLUTIONS Allergy Unknown from 's Uncoded 03/31/19 16:08 ofc record Home Medications Home Medications Medication Instructions Recorded Confirmed Type fluticasone propionate 50 1 sprays INTNAS DAILY 03/14/19 03/31/19 History mcg/actuation nasal spray,suspension levothyroxine 75 mcg tablet 75 mcg PO DAILY #90 tab 03/14/19 03/31/19 History loratadine 10 mg tablet 5 mg PO DAILY tab 03/31/19 03/31/19 History Patient History Medical History Primary hypothyroidism (Chronic) Hypoglycemia (Acute) Altered mental status (Acute) S/P tooth extraction Surgical History History of breast surgery S/P colonoscopy S/P dilation and curettage S/P hysterectomy S/P tonsillectomy and adenoidectomy Family History Father Lung cancer Hypertension FH: CABG (coronary artery bypass surgery) Coronary heart disease Mother Lung cancer Valvular heart disease Sister Hyperlipidemia Son Hyperlipidemia Grandmother Diabetes Social History Communication Ability: Effective Visual Impairment: No Limitations Hearing Ability: Normal Air Conditioning Insulation Installer Required: No Beliefs That Will Affect Care: None marital status: Single Current Living Situation: Spouse current occupational status: employed Feels Safe at Home: Yes Smoking Status: Never smoker Hx Alcohol Use: Yes Alcohol type: wine Alcohol Intake Frequency Comment: Social Drinker Hx Substance Use: No Physical Activity Frequency: Other Physical Activity Frequency Comment: Regularly Review of Systems Review of Systems: All systems reviewed & are unremarkable except as noted in HPI & below Physical Exam Physical Exam: Constitutional: Alert, cooperative and in no distress. HEENT: Unremarkable Neck: No jugular venous distention, carotid pulses are normal and equal bilaterally without bruits. Pulmonary: Clear to auscultation bilaterally. Cardiac: Regular rhythm with no murmur, gallop or rub. Abdomen: Soft, nontender with normal bowel sounds. Extremities: No edema. Distal pulses intact. Neurologic: No focal findings. Gait is steady. Skin: No rash, ecchymoses or petechiae. Results & Data Vital Signs (Past 12 Hours) Vital Signs Temp Pulse Pulse Resp BP Pulse Ox 03/26/19 13:53 60 03/26/19 11:45 36.6 C 70 16 144/78 H 97 03/26/19 07:45 36.7 C 75 18 113/57 L 95 03/26/19 04:45 36.3 C L 73 18 130/74 94 Diagnostic Findings Her presenting electrocardiogram on March 25, 2019 at noon shows sinus rhythm with possible left atrial enlargement, she does have T wave inversion V1 through V3 which can be a normal finding. Another electrocardiogram March 26, 2019 shows sinus rhythm with an incomplete right bundle branch block and similar T wave findings. Similar to 2014. Telemetry: Sinus rhythm, no abnormality Echocardiogram: Essentially normal. PG Care Time/CCT Total # of Minutes Spent Total Time Spent with Patient: Total time spent is greater than 50% in coordination of care (as documented) at patient's floor/unit and/or counseling patient:
--- NOTE | 2019-03-31 14:08 | Discharge Summary ---
Date of Service date of admission - 03/25/19 date of discharge - 03/26/19 Admission HPI Per Admitting Provider 68-year-old female in good health who was exercising at the gym with a rehab trainer when she was noted by her sports medicine trainer to have transient altered mental status and weakness. There was no syncope. Her symptoms resolved after drinking Gatorade. She denied feeling any chest pain, shortness of breath, or palpitations. She ate a breakfast of toast and orange juice at approximately 8 AM and her symptoms occurred this morning at 10 AM with exercise. Head CT scan was unremarkable. EKG revealed normal sinus rhythm with nonspecific T wave changes. Principal Diagnosis near-syncope Discharge Exam Constitutional well developed, well nourished and average body habitus; no acute distress and no altered mental status ENMT external ear and nose normal, oropharynx normal Respiratory normal respiratory effort, lungs clear to auscultation Cardiovascular Rate/Rhythm: regular rate and regular rhythm Heart Sounds: normal S1 and normal S2; no murmur Vessels: posterior tibial pulses present and dorsalis pedis pulses present; no JVD Extremities: no edema Gastrointestinal (Abdomen) normal bowel sounds, soft, nontender, no hepatosplenomegaly Neurologic deep tendon reflexes 2+ bilaterally; no focal motor deficits Speech / Cognition: normal speech Motor/Sensory: no tremor Gait: no ataxic gait Psychiatric A+Ox3, euthymic affect Discharge Data Allergies Allergy/AdvReac Type Severity Reaction Status Date / Time Sulfa (Sulfonamide Allergy Mild Unknown Unverified 03/25/19 13:01 Antibiotics) azithromycin Allergy Unknown Verified 03/25/19 13:01 X-RAY DYE Allergy Severe ANAPHYLAXIS Uncoded 03/25/19 13:01 [id number] Allergy Intermediate unknown Uncoded 03/25/19 13:01 [id number] Allergy Mild Unknown Uncoded 03/25/19 13:01 IODINE SOLUTIONS Allergy Unknown from dr's Uncoded 03/25/19 13:01 ofc record Consultations cardiology - Kaleb Carbajal MD Ordered Studies 1. CT head - normal; no acute intra-cranial pathology. 2. Carotid duplex study negative for ICA stenosis. 3. echocardiogram - * EF 65-70% * normal LV wall motion * mild MR * no LVH Hospital Course (1) Near syncope: The patient had received an email from her rehab trainer detailing the event. We received this information on hospital day #2. Apparently, just prior to the event, the patient had complained to the sports medicine trainer multiple times about dizziness/lightheadedness. She was wearing a "fit-bit" and thus her heart rate was able to be monitored. It did not appear that she ever had bradycardia, extreme tachycardia, or even pauses or arrest. She never had pallor according to the sports medicine trainer. When she complained of the dizziness the sports medicine trainer had her lay down. She did indeed have a brief period of disorientation and loss of memory but otherwise never had outright syncope. Thus, I would characterize this event as "near-syncope." I do not think she had hypoglycemia. Glucose level was normal upon arrival to [facility]. Retrospectively the patient had had significant diarrhea about 2 days prior to this event and had been exercising for about 45 minutes when the event occurred. Thus, it is suspected her near-syncopal event was volume-related (orthostasis/relative dehydration). She was seen in consult by Dr Carbajal from cardiology. He felt that this event was orthostatic in nature as well. The prodromal symptoms fit with relative dehydration/orthostasis. Arrhythmia was not suspected. Ischemia was not suspected either. He did recommend that if she had additional spells in the future then an outpatient stress test, 30-day event monitor, etc could be pursued. Echo was normal as outlined above. Telemetry was normal while here. Carotid duplex was normal as well. Good hydration measures were reviewed with the patient in detail before discharge. (2) Altered mental status: Resolved. see discussion above in "near syncope". (3) ECG abnormality: Patient with anterior nonspecific ST changes but these have been chronic going back several years. Ischemia was felt NOT to be the cause of her presenting symptoms. (4) Primary hypothyroidism: TSH was 1.2. She will continue her synthroid as previous. Total Time Total Time Spent Total Time Spent (In Minutes): 45 Total Time Includes: Examination of the Patient, Discharge Planning, Medication Reconciliation and Communication With Other Providers Discharge Plan Discharge Items Patient Disposition: Home - Self-Care Reason For Visit: dizziness/lightheadedness with confusion Discharge Diagnosis: 1. lightheadedness suspected to be from "near-syncope" 2. transient/temporary confusion due to #1 Discharge Goals: Diagnostic testing and Therapeutic intervention Activity: As commented below Activity Comment: light activities for 2-3 days then resume normal activity Lifting: Gradually increase as tolerated Bathing: No limitations Sexual Activity: Wait until after follow-up appointment Exercise Comment: may resume normal activities next Saturday or Saturday Driving/Machine Use: Resume 1 day after discharge Non-emergency contact: Primary Care Provider Call non-emergency contact if: you have any medication questions, your symptoms worsen and your temperature is above 100.5 Follow-up/Referrals: Andrew Regalado MD [Primary Care Provider] - Diet: Regular Addtl Provider Instructions: You were admitted for an episode of lightheadedness which was then followed by brief, transient confusion. It is likely that you suffered an episode of "near-syncope." The most common cause of this is mild dehydration/not enough fluids in your system. Your heart monitoring on telemetry, echocardiogram, CT head and carotid ultrasound were normal. You were seen by cardiology and they, too, felt that your heart is functioning normally and that relative dehydration was the most likely cause of your episode. This was NOT a mini-stroke, "TIA," or stroke. We do not feel that this episode was due to low blood sugar (AKA - hypoglycemia). Gradually increase your activities over the next few days. When you resume going to the gym please drink plenty of fluids/water BEFORE, DURING, and AFTER your work-outs. If you have additional episodes of lightheadedness OR you have chest pain/shortness of breath/palpitations (rapid heart beating) during work-outs please see the manager business continuity for more testing. Follow-up -- see Dr Regalado in 5-7 days. Return to [facility] if -- - you have lightheadedness, dizziness, feel like you may pass out or indeed you pass out - you experience chest pain, shortness of breath, or palpitations (fast heart beating) - any other concerns Prescriptions: Continued levothyroxine 75 mcg tablet 75 mcg PO DAILY Qty: 90 RF: 0 fluticasone propionate 50 mcg/actuation spray,suspension 1 sprays INTNAS DAILY RF: 0 Stand-Alone Forms: My [facility] Discharge Orders: Discharge Order (Routine); Ordered 03/26/19 Ordered By: Andrew Guthrie Admission Data Admit Date/Time: 03/25/19 15:59 Attending Provider: Andrew Guthrie Admit Provider: Ravinder Petty Primary Care Provider: Andrew Regalado Other Providers: Kaleb Carbajal Service: Telemetry Medical Other Interventions: Discharge Summary Assessment (RN) Last Done: 03/26/19 19:10 Pending Studies at Discharge: No DC Date/Time DO NOT enter until pt leaves facility: 03/26/19 19:25
== END 2019-03-26 19:25 | disposition home or self-care (01) ==
LOC: ED 11:26 → 2N 11:26 → SUATTDRO 15:59 → 2N 17:15
DX: R55 Syncope and collapse; E03.9 Hypothyroidism, unspecified; R41.82 Altered mental status, unspecified; E16.2 Hypoglycemia, unspecified; Z79.899 Other long term (current) drug therapy; Z88.1 Allergy status to other antibiotic agents; Z88.2 Allergy status to sulfonamides

== ENCOUNTER 2021-08-01 09:34 | Observation (INO) ==
[2021-08-01] MEDS ORDERED: ADENOSINE IV SOLN 3 MG/ML 2 ML VIAL IV ONE (09:50)
[2021-08-01] MEDS ORDERED: ADENOSINE IV SOLN 3 MG/ML 2 ML VIAL IV STA (09:51)
[2021-08-01] MEDS ORDERED: SODIUM CHLORIDE 0.9% 1000ML 1,000 ML IV ONE (09:52)
[2021-08-01] MEDS ORDERED: METOPROLOL TARTRATE 1 MG/ML VIAL IV STA ×3 (09:58→12:35)
[2021-08-01] MEDS ORDERED: LORazepam 1 MG/2 ML VIAL IV STA ×2 (09:58→12:35)
[2021-08-01] MEDS ORDERED: LORazepam 2 MG/4 ML VIAL ONE (09:59)
[2021-08-01] MEDS ORDERED: METOPROLOL TARTRATE 1 MG/ML VIAL IV ONE (09:59)
[2021-08-01 10:03] LABS: Basophils # (auto) 0.03 K/uL (0-0.2); Basophils % (auto) 0.3 %; Eosinophils # (auto) 0.32 K/uL (0-0.5); Eosinophils % (auto) 2.9 %; Hematocrit (blood only) 46.3 % (37-47); Hemoglobin 15.6 g/dL (12.0-16.0); Immature Granulocytes # (auto) 0.02 K/uL (0.00-0.02); Immature Granulocytes % (auto) 0.2 %; Lymphocytes # (auto) 3.23 K/uL (1.2-3.4); Lymphocytes % (auto) 29.6 %; Mean Corpuscular Hemoglobin 31.2 pg (25-34); Mean Corpuscular Hgb Conc 33.7 g/dL (32-36); Mean Corpuscular Volume 92.6 fL (80-100); Monocytes # (auto) 0.79 K/uL (0.11-0.59); Monocytes % (auto) 7.2 %; Neutrophils # (auto) 6.54 K/uL (1.4-6.5); Neutrophils % (auto) 59.8 %; Platelet Count 353 K/uL (130-400); RDW Coefficient of Variation 13.9 % (11.5-14.5); RDW Standard Deviation 47.3 fL (36.4-46.3); White Blood Count 10.93 K/uL (4.8-10.8)
--- NOTE | 2021-08-01 10:19 | XRay Report ---
XR chest 1V portable CLINICAL HISTORY: Dysrhythmia. COMPARISON STUDY: 05/24/2014 TECHNIQUE: 1 view of the chest FINDINGS: Single frontal view of the chest demonstrates the cardiomediastinal silhouette to be within normal li mits. The lungs are clear of alveolar opacities. There is no evidence for pleural effusion. There is no evidence for vascular congestion. There is no acute osseous pathology. IMPRESSION: No acute cardiopulmonary disease. ACT 112: Negative or not required by law. Electronically signed by: Jameson Rodrigues M.D. 08/01/2021 10:18 AM
[2021-08-01 10:26] LABS: Alanine Aminotransferase 26 (12-78); Albumin Level 4.2 gm/dl (3.4-5.0); BUN Creatinine Ratio 15.2 (10-20); Blood Urea Nitrogen 16 mg/dl (7-18); Calcium 10.1 mg/dl (8.5-10.1); Carbon Dioxide 22 mmol/L (21-32); Chloride 106 mmol/L (98-107); Creatinine Clr Calc Pharmacy 56.3 ml/min; Est GFR (African American) 60.7 ml/min; Est GFR (Non-African American) 52.3 ml/min; Glucose 126 mg/dl (70-99)
[2021-08-01 10:38] LABS: Partial Thromboplastin Ratio 1.1; Partial Thromboplastin Time 28.4 Seconds (21.0-31.0)
[2021-08-01 10:55] LABS: Alkaline Phosphatase 86 U/L (45-117); Bilirubin,Total 0.6 mg/dl (0.2-1); Globulin 4.2 gm/dl (2.5-4.0); Potassium 3.4 mmol/L (3.5-5.1); Sodium 138 mmol/L (136-145); Total Protein 8.4 gm/dl (6.4-8.2); Troponin I < 0.015 ng/ml (0-0.045)
[2021-08-01 11:05] LABS: Aspartate Aminotransferase 19 U/L (15-37); Magnesium 2.3 mg/dl (1.8-2.4)
[2021-08-01 11:19] LABS: Appearance Urine Clear (Clear); Bacteria Urine Automated Negative (Negative); Bilirubin Urine Negative (Negative); Blood Urine Negative (Negative); Color Urine Yellow; Glucose Urine UA Negative (Negative); Ketones Urine Negative (Negative); Leukocyte Esterase Urine Negative (Negative); Nitrite Urine Negative (Negative); RBC Urine Automated 0-4 /hpf (0-4); Specific Gravity Urine 1.012 (1.000-1.030); Urobilinogen Urine Negative (Negative); pH Urine 7.5 (4.5-7.5)
[2021-08-01 11:21] LABS: Protein Urine Trace (Negative)
--- NOTE | 2021-08-01 13:06 | History & Physical Report ---
Date of Service August 01, 2021 Assessment & Plan (1) Atrial fibrillation: Plan: Patient will be admitted to the hospital proceeding as follows: We will place the patient on telemetry for cardiac monitoring We will trend her cardiac enzymes and EKGs We will place her on antiplatelet therapy in the form of aspirin We will utilize metoprolol for heart rate control; we will administer 25 mg orally twice daily with the first dose being given now We will check an echocardiogram We will obtain a cardiology consult We will will place the patient on Lovenox 1 mg/kg every 12 hours while an inpatient; determination of outpatient anticoagulation will be determined at a later time We will supplement the patient's potassium As the patient will be on the above-noted dose of Lovenox no further DVT prevention will be required I discussed CODE STATUS with the patient and she would be a level one full code History of Present Illness Chief Complaint: Palpitations Primary Care Provider: Andrew Regalado MD This is a 70-year-old female who was at the gym today working out on some aerobic [place] earlier today. The patient notes that she utilizes a heart rate monitor while at the gym and she felt some chest tightness along with palpitations and reviewed the heart rate monitor strips which noted patient was markedly tachycardic. Patient says she has never had this before. When this occurred she did not exhibit any diaphoresis or nausea or vomiting. She said she "felt shaky.". Because of this the patient presented to the emergency department. The patient notes that she consumes at least five caffeinated beverages per day. She is a lifetime non-smoker. Patient notes that her mother suffered from atrial fibrillation and her dad suffer from coronary artery disease. Patient also admits that over the past several weeks when she goes up inclines she does seem to get slightly more short of breath than usual. Patient notes that she has had a Covid vaccine and is also received a Covid booster in May of this year. Patient notes that she did have a stress test years ago and to the best of her knowledge was without any significant cardiac problems. I also question the patient on recent travel and she said that she did travel to [facility] in May and to the best of her knowledge has not had any sequelae related to this. In the emergency department the patient had an EKG that was concerning for supraventricular tachycardia. The treating emergency room physician did admin ister adenosine and the patient's EKG was repeated which showed a diagnosis of atrial fibrillation. Some ST and T wave abnormalities mostly in the inferior leads concerning for ischemia.Patient also had labs and imaging which I independently reviewed. A CBC showed white blood cell count was 10.9. Her hemoglobin, hematocrit, and platelet count are all within normal range. Coagulation studies were all noted to be normal. Chemistry profile showed her sodium was one thirty-eight. Potassium was slightly low at 3.4. Her BUN and creatinine were sixteen and 1.0 both within the normal range. A magnesium level was noted to be within normal range. Cardiac enzymes were checked and were nonelevated urinalysis was not indicative of infection. A Covid test was performed and was negative. The patient has also had a chest x-ray that showed no evidence of pneumonia or CHF. During my visit the patient was again noted to be in atrial fibrillation with a heart rate anywhere from one 20-1 forty. She was administered metoprolol at the bedside and she converted to normal sinus rhythm. When she converted normal sinus rhythm she noted a marked improvement of her symptoms. She was in no distress at the time of my interview Allergies Allergy/AdvReac Type Severity Reaction Status Date / Time Sulfa (Sulfonamide Allergy Mild Unknown Verified 08/01/21 10:44 Antibiotics) Iodinated Contrast Media Allergy Unknown Verified 08/01/21 10:44 azithromycin Allergy Unknown Verified 08/01/21 10:44 Home Medications Medication Instructions Recorded Confirmed Type cetirizine 10 mg capsule (Allergy 10 mg PO DAILY PRN 06/14/21 08/01/21 History Relief (cetirizine)) cholecalciferol (vitamin D3) 25 75 mcg PO QDL 08/01/21 08/01/21 History mcg (1,000 unit) capsule (Vitamin D3) fluticasone propionate 50 1 spray INTNAS HS 08/01/21 08/01/21 History mcg/actuation nasal spray,suspension levothyroxine 75 mcg tablet 75 mcg PO DAILYBB 08/01/21 08/01/21 History Past Med/Surg History Medical History (Updated 08/01/21 @ 13:03 by Rodolfo Roach PA-C) Altered mental status ECG abnormality Hypoglycemia Primary hypothyroidism Surgical History History of breast surgery S/P colonoscopy S/P dilation and curettage S/P hysterectomy S/P tonsillectomy and adenoidectomy S/P tooth extraction Family History Father Lung cancer Hypertension FH: CABG (coronary artery bypass surgery) Coronary heart disease Mother Lung cancer Valvular heart disease Sister Hyperlipidemia Son Hyperlipidemia Grandmother Diabetes Denies family history of Ovarian cancer Prostate cancer Myocardial infarction Breast cancer Colorectal cancer Social History Smoking Status: Never smoker Hx Alcohol Use: No Hx Substance Use: No Preferred Language: Palauan Communication Ability: Effective Visual Impairment: No Limitations Hearing Ability: Normal Cheese Cutter Required: Yes Beliefs That Will Affect Care: None marital status: Current Living Situation: Spouse current occupational status: retired Feels Safe at Home: Yes Dental Care, Regularly: Yes Physical Activity Frequency: Other Physical Activity Frequency Comment: Regularly Seatbelt Use: always Sunscreen Use: Yes Assistive Devices: Glasses Review of Systems Constitutional: no fever, no chills and no fatigue Eyes: no diplopia Ear, Nose, Mouth, Throat: no ear pain Respiratory: no cough and no dyspnea Cardiovascular: + chest pain and + palpitations Gastrointestinal: no abdominal pain, no nausea and no vomiting Genitourinary: no dysuria Musculoskeletal: no back pain Integumentary: no rash Neurologic: no localized weakness Physical Exam Constitutional: WD/WN, vitals as above Eyes: PERRL, conjunctivae normal, anicteric sclerae ENMT: Ears: no hearing impairment Neck: trachea midline Respiratory: normal respiratory effort; no respiratory distress and no labored breathing Breath sounds are slightly decreased at the bases with an occasional crackle. Cardiovascular: Rate/Rhythm: + irregularly irregular Extremities: no calf tenderness Pedal and radial pulses are palpable Gastrointestinal (Abdomen): normal bowel sounds, soft, nontender, no hepatosplenomegaly Musculoskeletal: No calf tenderness Skin: no rashes, warm and dry Neurologic: PERRL, EOMI, accommodation nl, no face palsy, no dysarthria Psychiatric: A+Ox3, euthymic affect Results & Data Results & Data ([facility]) Vital Signs (Past 12 Hours) Vital Signs Temp Pulse Pulse Resp BP BP Pulse Ox 08/01/21 12:37 117 H 18 129/104 H 95 08/01/21 10:48 104 H 18 146/94 H 95 08/01/21 10:12 103 H 116 H 20 121/105 H 121/105 H 94 08/01/21 10:04 152 H 152/113 H 08/01/21 09:43 36.6 C 168 H 18 153/102 H 98 Supervising Physician Co-Signing Physician Notes I personally saw and examined the patient. I verified all carrillo points and agree with SKYLAR Jackson with the following exceptions and/or additions: 70 year old female presents with atrial fibrillation with rapid ventricular rate with associated shortness of breath. Started earlier today. O/E No acute distress, RRR, no murmurs, Chest CTAB, Abdo SNT A/P Atrial fibrillation with RVR - converted in the ER with 5mg IV metoprolol x3. Start metoprolol 25mg PO BID. [id number] 2. Start Lovenox, switch to Eliquis on discharge. TSH WNL. TTE pending. No significant ischemic changes on post conversion EKG. PG Care Time/CCT Total # of Minutes Spent Total Time Spent with Patient: Total time spent is greater than 50% in coordination of care (as documented) at patient's floor/unit and/or counseling patient: Coding Level of Care Code 00155 Initial Inpt Care Lvl 3 Diagnoses Atrial fibrillation I48.91
[2021-08-01] MEDS ORDERED: METOPROLOL TARTRATE 25 MG TAB PO SCH (13:15)
[2021-08-01] MEDS ORDERED: POTASSIUM CHLORIDE PWD 20 MEQ PACK PO ONE (13:17)
[2021-08-01] MEDS ORDERED: CETIRIZINE HCL 10 MG TABLET PO PRN (14:30)
[2021-08-01] MEDS ORDERED: ONDANSETRON INJ 2 MG/ML 2 ML VIAL IV PRN (14:30)
[2021-08-01] MEDS ORDERED: MAGNESIUM HYDROXIDE SUSP 30 ML UDC PO PRN (14:30)
[2021-08-01] MEDS ORDERED: ENOXAPARIN 100 MG/1ML SYR SQ SCH (14:30)
[2021-08-01] MEDS ORDERED: ACETAMINOPHEN 325 MG TAB PO PRN (14:30)
[2021-08-01] MEDS ORDERED: ALUMINUM/MAGNESIUM SUSP 30 ML UDC PO PRN (14:30)
[2021-08-01 15:12] LABS: Creatine Kinase MB < 1.0 ng/ml (0.5-3.6); Troponin I < 0.015 ng/ml (0-0.045)
--- NOTE | 2021-08-01 15:16 | XCELERA ---
[id number]
--- NOTE | 2021-08-01 16:31 | Cardiology Consultation ---
Date of Consultation August 01, 2021 Assessment & Plan (1) PAF (paroxysmal atrial fibrillation): -fortunately, has converted to sinus rhythm after receiving intravenous metoprolol. -would initiate long-term anticoagulation as her CHADS Vasc score is 2. -would continue metoprolol. -stable for hospital discharge. -I am happy to see her in follow-up. (2) Hyperlipidemia: -would consider statin therapy. History of Present Illness Attending Physician: Andrew Dupree MD History of Present Illness Mrs. Moran is a 70-year-old female admitted earlier today with atrial fibrillation and rapid ventricular response. This consultation was ordered to assist in her cardiac management. The patient was in her usual state of health until earlier today when she developed the abrupt onset of palpitations and feeling shaky while exercising at a local gymnasium. She became quite concerned and presented to the emergency room for further care. On arrival here she was noted to be in atrial fibrillation with a rapid ventricular response. As her tachycardia was quite regular, she was given a dose of adenosine as this may represent an SVT. This simply showed her atrial fibrillation at baseline. While receiving intravenous metoprolol, patient spontaneously converted to sinus rhythm. This represents a 1st episode of atrial fibrillation. We have discussed importance of long-term anticoagulation as her [id number] DS Vasc score equals 2. She has received both of her COVID vaccinations. Currently, the patient is resting comfortably in bed without complaints. Past medical and surgical history 1. Hypercholesterolemia 2. Hypothyroidism 3. Steatohepatitis 4. Allergic rhinitis 5. Hysterectomy 6. Tonsillectomy 7. History of D and C 8. Breast surgery Social history and lives with her No tobacco Social alcohol Family history No early coronary artery disease Review of systems A 10 review systems was negative except that described above. Allergies Allergy/AdvReac Type Severity Reaction Status Date / Time Sulfa (Sulfonamide Allergy Mild Unknown Verified 08/01/21 10:44 Antibiotics) Iodinated Contrast Media Allergy Unknown Verified 08/01/21 10:44 azithromycin Allergy Unknown Verified 08/01/21 10:44 Home Medications Medication Instructions Recorded Confirmed Type cetirizine 10 mg capsule (Allergy 10 mg PO DAILY PRN 06/14/21 08/01/21 History Relief (cetirizine)) apixaban 5 mg tablet (Eliquis) 5 mg PO BID #60 tab 08/01/21 Rx cholecalciferol (vitamin D3) 25 75 mcg PO QDL 08/01/21 08/01/21 History mcg (1,000 unit) capsule (Vitamin D3) fluticasone propionate 50 1 spray INTNAS HS 08/01/21 08/01/21 History mcg/actuation nasal spray,suspension levothyroxine 75 mcg tablet 75 mcg PO DAILYBB 08/01/21 08/01/21 History metoprolol tartrate 25 mg tablet 25 mg PO BID #60 tab 08/01/21 Rx Patient History Medical History (Updated 08/01/21 @ 16:29 by Andrew Bryant MD) Altered mental status ECG abnormality Hypoglycemia Primary hypothyroidism Surgical History History of breast surgery S/P colonoscopy S/P dilation and curettage S/P hysterectomy S/P tonsillectomy and adenoidectomy S/P tooth extraction Family History Father Lung cancer Hypertension FH: CABG (coronary artery bypass surgery) Coronary heart disease Mother Lung cancer Valvular heart disease Sister Hyperlipidemia Son Hyperlipidemia Grandmother Diabetes Denies family history of Ovarian cancer Prostate cancer Myocardial infarction Breast cancer Colorectal cancer Social History Smoking Status: Never smoker Hx Alcohol Use: No Hx Substance Use: No Preferred Language: Gabonese Communication Ability: Effective Visual Impairment: No Limitations Hearing Ability: Normal Electric[employer] Required: Yes Beliefs That Will Affect Care: None marital status: Current Living Situation: Spouse current occupational status: retired Feels Safe at Home: Yes Dental Care, Regularly: Yes Physical Activity Frequency: Other Physical Activity Frequency Comment: Regularly Seatbelt Use: always Sunscreen Use: Yes Assistive Devices: Glasses Physical Exam Physical Exam: In general is well-developed well-nourished white female in no acute distress. HEENT exam is negative. Neck is supple with full carotid upstrokes. No carotid bruits. Jugular venous pressure is flat at 90. There is no thyromegaly. Cardiovascular exam reveals a regular rhythm with normal S1 and S2. No S3, S4, or murmurs are noted. Lungs are clear without rales, rhonchi, or wheezes. Abdomen is soft and nontender without bruits. Extremities reveal intact radial artery pulses bilaterally. There is no peripheral edema. Results & Data ([facility]) Vital Signs (Past 12 Hours) Vital Signs Temp Pulse Pulse Resp BP BP Pulse Ox 08/01/21 15:04 36.6 C 68 18 160/78 H 96 08/01/21 14:10 126/98 96 08/01/21 14:03 95 08/01/21 13:50 76 21 08/01/21 13:40 80 21 08/01/21 13:30 77 19 94 08/01/21 13:20 83 22 93 08/01/21 13:10 81 20 96 08/01/21 13:00 81 29 H 95 08/01/21 12:50 142 H 18 94 08/01/21 12:40 123 H 17 95 08/01/21 12:37 117 H 18 129/104 H 95 08/01/21 12:30 133 H 19 98 08/01/21 12:20 116 H 16 96 08/01/21 12:10 117 H 23 95 08/01/21 12:00 111 H 17 94 08/01/21 11:50 111 H 23 95 08/01/21 11:40 103 H 23 95 08/01/21 11:30 113 H 16 97 08/01/21 11:20 108 H 17 97 08/01/21 11:10 103 H 16 95 08/01/21 11:00 105 H 18 97 08/01/21 10:50 99 H 25 H 95 08/01/21 10:48 104 H 18 146/94 H 95 08/01/21 10:40 89 20 96 08/01/21 10:30 101 H 20 96 08/01/21 10:20 103 H 20 94 08/01/21 10:12 103 H 116 H 20 121/105 H 121/105 H 94 08/01/21 10:11 110 H 16 96 08/01/21 10:04 152 H 152/113 H 08/01/21 10:00 108 H 16 100 08/01/21 09:54 102 H 20 08/01/21 09:43 36.6 C 168 H 18 153/102 H 98 Laboratory Results CBC notes hemoglobin of 15.6, hematocrit 46.3, white count 10.9, platelet count [id number]. Electrolytes note a sodium of 138, potassium 3.4, chloride 106, bicarb 22, BUN 16, creatinine 1.08, and glucose of 126. Two troponin I levels undetectable less than 0.015. TSH is normal at 1.33. Diagnostic Findings Initial EKG noted atrial fibrillation with a rapid ventricular response. There is nonspecific ST and T-wave abnormality. Follow-up tracing noted sinus rhythm with a left atrial abnormality and nonspecific T-wave abnormality. Echocardiogram noted normal left ventricular systolic function with ejection fraction 60-65%. There was mild mitral regurgitation. This is unchanged from study done in March 2019. PG Care Time/CCT Total # of Minutes Spent Total Time Spent with Patient: Total time spent is greater than 50% in coordination of care (as documented) at patient's floor/unit and/or counseling patient: Coding Level of Care Code 78009 Office/Outpt Visit, New Diagnoses PAF (paroxysmal atrial fibrillation) I48.0 Hyperlipidemia E78.5
--- NOTE | 2021-08-01 16:34 | Discharge Summary ---
Date of Service August 01, 2021 Admission HPI Per Admitting Provider This is a 70-year-old female who was at the gym today working out on some aerobic [place] earlier today. The patient notes that she utilizes a heart rate monitor while at the gym and she felt some chest tightness along with palpitations and reviewed the heart rate monitor strips which noted patient was markedly tachycardic. Patient says she has never had this before. When this occurred she did not exhibit any diaphoresis or nausea or vomiting. She said she "felt shaky.". Because of this the patient presented to the emergency department. The patient notes that she consumes at least five caffeinated renato erages per day. She is a lifetime non-smoker. Patient notes that her mother suffered from atrial fibrillation and her dad suffer from coronary artery disease. Patient also admits that over the past several weeks when she goes up inclines she does seem to get slightly more short of breath than usual. Patient notes that she has had a Covid vaccine and is also received a Covid booster in May of this year. Patient notes that she did have a stress test years ago and to the best of her knowledge was without any significant cardiac problems. I also question the patient on recent travel and she said that she did travel to [facility] in May and to the best of her knowledge has not had any sequelae related to this. In the emergency department the patient had an EKG that was concerning for supraventricular tachycardia. The treating emergency room physician did administer adenosine and the patient's EKG was repeated which showed a diagnosis of atrial fibrillation. Some ST and T wave abnormalities mostly in the inferior leads concerning for ischemia.Patient also had labs and imaging which I independently reviewed. A CBC showed white blood cell count was 10.9. Her hemoglobin, hematocrit, and platelet count are all within normal range. Coagulation studies were all noted to be normal. Chemistry profile showed her sodium was one thirty-eight. Potassium was slightly low at 3.4. Her BUN and creatinine were sixteen and 1.0 both within the normal range. A magnesium level was noted to be within normal range. Cardiac enzymes were checked and were nonelevated urinalysis was not indicative of infection. A Covid test was performed and was negative. The patient has also had a chest x-ray that showed no evidence of pneumonia or CHF. During my visit the patient was again noted to be in atrial fibrillation with a heart rate anywhere from one 20-1 forty. She was administered metoprolol at the bedside and she converted to normal sinus rhythm. When she converted normal sinus rhythm she noted a marked improvement of her symptoms. She was in no distress at the time of my interview Principal Diagnosis Atrial fibrillation with rapid ventricular rate Discharge Exam Constitutional WD/WN, vitals as above Respiratory normal respiratory effort, lungs clear to auscultation Cardiovascular RRR, no murmur, no edema Discharge Data Allergies Allergy/AdvReac Type Severity Reaction Status Date / Time Sulfa (Sulfonamide Allergy Mild Unknown Verified 08/01/21 10:44 Antibiotics) Iodinated Contrast Media Allergy Unknown Verified 08/01/21 10:44 azithromycin Allergy Unknown Verified 08/01/21 10:44 Consultations 08/01/21 14:30 Consult Cardiology Routine Hospital Course (1) Atrial fibrillation: Meron Moran is a 70 year old female who presents to the ER on August 01, 2021 with palpitations and shortness of breath. She was diagnosed with atrial fibrillation with rapid ventricular rate. This was initially treated with adenosine due to concern for supraventricular tachycardia. Once confirmed in atrial fibrillation this was treated metoprolol 5mg IV x3. her rhythm converted to normal sinus rhythm after the third dose was given. TSH and echocardiogram were normal. She was started on metoprolol tartrate 25mg PO BID for rate control if she goes back into atrial fibrillation and started on Eliquis for stroke prophylaxis. She will follow up with cardiology in clinic. Total Time Total Time Spent Total Time Spent (In Minutes): 25 Discharge Plan Discharge Items Patient Disposition: Home - Self-Care Reason For Visit: AFIB Discharge Diagnosis: Atrial fibrillation with rapid ventricular rate Activity: Resume your previous activity Non-emergency contact: Primary Care Provider Call non-emergency contact if: you have any medication questions and your symptoms worsen Follow-up/Referrals: Andrew Regalado MD [Primary Care Provider] - Diet: Regular Addtl Attending Provider Instructions: You were admitted to [facility] on August 01, 2021 due to atrial fibrillation with rapid ventricular rate. This was initially treated with adenosine due to concern for supraventricular tachycardia. Once confirmed in atrial fibrillation this was treated metoprolol 5mg IV x3. This coverted you back into a normal sinus rhythm. Thyroid studies and echocardiogram were normal. You are at an increased stroke risk due to this rhythm and recommend starting on Eliquis for this. Please also continue on metoprolol tartrate 25mg PO twice a day for rate control if you are to go back into this rhythm. Pending Studies at Discharge: No Stand-Alone Forms: My [facility], Smoking Cessation Medications and DC Order Prescriptions: New metoprolol tartrate 25 mg tablet 25 mg PO BID Qty: 60 RF: 0 Eliquis 5 mg tablet 5 mg PO BID Qty: 60 RF: 0 Continued Allergy Relief (cetirizine) 10 mg capsule 10 mg PO DAILY PRN (Reason: Allergy Symptoms) RF: 0 levothyroxine 75 mcg tablet 75 mcg PO DAILYBB RF: 0 fluticasone propionate 50 mcg/actuation spray,suspension 1 spray INTNAS HS RF: 0 No Action multivitamin Tablet 1 tab PO DAILY RF: 0 Discharge Orders: Discharge Order (Routine); Ordered 08/01/21 Ordered By: Andrew Robert/Other Patient Handouts: ED Atrial Fibrillation Admission Data Admit Date/Time: 08/01/21 13:12 Attending Provider: Andrew Dupree Admit Provider: Andrew Dupree Primary Care Provider: Andrew Regalado Other Providers: Andrew Bryant Coding Level of Care Code None Diagnoses Atrial fibrillation I48.91 Comment Discharged within 8 hours of admission
--- NOTE | 2021-08-01 16:41 | Electrocardiogram Report ---
Test Reason : Blood Pressure : / mmHG Vent. Rate : 077 BPM Atrial Rate : 077 BPM P-R Int : 172 ms QRS Dur : 088 ms QT Int : 384 ms P-R-T Axes : 044 047 024 degrees QTc Int : 434 ms Normal sinus rhythm Possible Left atrial enlargement Borderline ECG When compared with ECG of 01-AUG-2021 10:03, Sinus rhythm has replaced Atrial fibrillation Vent. rate has decreased BY [address] no longer depressed in Inferior leads ST no longer depressed in Lateral leads Nonspecific T wave abnormality now evident in Anterior leads Confirmed by Andrew Bryant ([id number]) on 08/01/2021 4:40:23 PM Referred By: REFERRED SELF Confirmed By:Andrew Bryant
[2021-08-01] MEDS ORDERED: FLUTICASONE PROPIONATE NA SPR 16 GM BTL SCH (21:00)
[2021-08-02] MEDS ORDERED: LEVOTHYROXINE SODIUM 75 MCG TABLET PO SCH (06:30)
[2021-08-02] MEDS ORDERED: ASPIRIN 81 MG ECTAB PO SCH (09:00)
[2021-08-02] MEDS ORDERED: CHOLECALCIFEROL 1,000 UNITS 25 MCG TAB PO SCH (11:30)
--- NOTE | 2021-08-03 08:58 | Emergency Department Note ---
Impression & Plan Atrial fibrillation with RVR ED Provider Note CHIEF COMPLAINT: Palpitations, racing heart HISTORY OF PRESENT ILLNESS: This 70-year-old female patient presents to the emergency department with complaints of a racing heart. Patient states she was unable to get her to slow down after her workout today. Patient went to the gym patient was pedaling on the bike. Her heart rate was slightly higher than usual and did not slow down after she stopped. Patient denies any shortness of breath and states she is uncomfortable has some chest discomfort. She is not nauseated. Patient denies any previous heart disease. She states she has been feeling well lately. REVIEW OF SYSTEMS: A review of systems was performed with positives and pertinent negatives listed in the history of present illness. 10 systems were reviewed and are otherwise negative. ALLERGIES: see below MEDICATIONS: see below PMH: see below SOCIAL HISTORY: see below DDx: Premature contractions, electrolyte abnormality, cardiac dysrhythmia, thyroid dysfunction, pulmonary embolism, infection, gastrointestinal, as well as other pathologies. PHYSICAL EXAM: Vital signs reviewed. General: Well-appearing 70-year-old female, in some discomfort HEENT: No scleral icterus, PERRLA, neck supple. Atraumatic. Cardiovascular: Tachycardic seemingly regular, no extra sounds Pulmonary: Clear to auscultation bilaterally, normal work of breathing. Abdomen: Soft, nontender, nondistended, positive bowel sounds. Musculoskeletal: Atraumatic, no peripheral edema. Neurologic: Patient awake alert and oriented x 3, speech is clear Skin: Warm, dry, no rash EMERGENCY DEPARTMENT COURSE/MDM: Patient was evaluated and appeared to be in no significant distress. IV access was obtained and laboratory work was drawn. Patient was placed on a personnel monitor and noted to be in a narrow complex tachycardia that was initially thought to be in SVT. Patient was given adenosine 6 mg IV with a brief rate reduction but no significant change in rhythm. 12 mg of IV adenosine was then administered with a sinus pause and return to tachycardic rhythm. 5 mg of IV metoprolol was administered with significant rate reduction. Patient was given additional IV metoprolol for better rate management. She stated that her mother has a history of atrial fibrillation. Laboratory work is fairly reassuring. As this is a new onset condition and patient's rate is now only better controlled, patient was discussed with the service for admission and further management. Patient is aware of the plan and agrees. MONITORING: An order for cardiac monitoring was placed and the pt was noted to be in a atrial fibrillation at 168 bpm. RADIOLOGY: See below EKG:SVT vs atrial fibrillation at 166 bpm. Left posterior fascicular block, nonspecific ST changes, no PVC, no PAC. QTc of 498. DISPOSITION: admit I have personally spent greater than 35 minutes of critical care time in the direct management of this patient. This includes bedside care, interpretation of diagnostic studies, and testing, discussion with consultants, patient, and family members, and other required patient management activities. This 35 minutes is in excess of all separately billable procedures. Past Med/Surg History Medical History Altered mental status ECG abnormality Hypoglycemia Primary hypothyroidism Surgical History History of breast surgery S/P colonoscopy S/P dilation and curettage S/P hysterectomy S/P tonsillectomy and adenoidectomy S/P tooth extraction Family History Father Lung cancer Hypertension FH: CABG (coronary artery bypass surgery) Coronary heart disease Mother Lung cancer Valvular heart disease Sister Hyperlipidemia Son Hyperlipidemia Grandmother Diabetes Denies family history of Ovarian cancer Prostate cancer Myocardial infarction Breast cancer Colorectal cancer Social History Smoking Status: Never smoker Hx Alcohol Use: No Hx Substance Use: No Preferred Language: Sinhala Communication Ability: Effective Visual Impairment: No Limitations Hearing Ability: Normal Senior Ecologist Required: Yes Beliefs That Will Affect Care: None marital status: Current Living Situation: Spouse current occupational status: retired Feels Safe at Home: Yes Dental Care, Regularly: Yes Physical Activity Frequency: Other Physical Activity Frequency Comment: Regularly Seatbelt Use: always Sunscreen Use: Yes Assistive Devices: Glasses Allergies Allergies Allergy/AdvReac Type Severity Reaction Status Date / Time Sulfa (Sulfonamide Allergy Mild Unknown Verified 08/01/21 10:44 Antibiotics) Iodinated Contrast Media Allergy Unknown Verified 08/01/21 10:44 azithromycin Allergy Unknown Verified 08/01/21 10:44 Home Meds Home Medications Medication Instructions Recorded Confirmed cetirizine 10 mg capsule (Allergy 10 mg PO DAILY PRN 06/14/21 08/01/21 Relief (cetirizine)) fluticasone propionate 50 1 spray INTNAS HS 08/01/21 08/01/21 mcg/actuation nasal spray,suspension levothyroxine 75 mcg tablet 75 mcg PO DAILYBB 08/01/21 08/01/21 multivitamin 1 tab PO DAILY 08/02/21 Previous Rx's Medication Instructions Recorded apixaban 5 mg tablet (Eliquis) 5 mg PO BID #60 tab 08/01/21 metoprolol tartrate 25 mg tablet 25 mg PO BID #60 tab 08/01/21 citalopram 10 mg tablet (Celexa) 10 mg PO DAILY #30 tab 08/03/21 Results & Data (ED) Home Medications Current Medication List: was personally reviewed by me Laboratory Data Attestation: I reviewed the patient's lab results. Result diagrams: 08/01/21 09:52 08/01/21 09:52 Lab Results 08/01/21 08/01/21 08/01/21 Range/Units 08:52 09:52 09:52 WBC 10.93 H (4.8-10.8) K/uL RBC 5.00 (4.2-5.4) M/uL Hgb 15.6 (12.0-16.0) g/dL Hct 46.3 (37-47) % MCV 92.6 (80-100) fL MCH 31.2 (25-34) pg MCHC 33.7 (32-36) g/dL RDW Std Deviation 47.3 H (36.4-46.3) fL RDW Coeff of Digna 13.9 (11.5-14.5) % Plt Count 353 (130-400) K/uL MPV 11.0 H (7.4-10.4) fL Immature Gran % (Auto) 0.2 % Neut % (Auto) 59.8 % Lymph % (Auto) 29.6 % [place] % (Auto) 7.2 % Eos % (Auto) 2.9 % Baso % (Auto) 0.3 % Neut # (Auto) 6.54 H (1.4-6.5) K/uL Lymph # (Auto) 3.23 (1.2-3.4) K/uL [place] # (Auto) 0.79 H (0.11-0.59) K/uL Eos # (Auto) 0.32 (0-0.5) K/uL Baso # (Auto) 0.03 (0-0.2) K/uL Immature Gran # (Auto) 0.02 (0.00-0.02) K/uL PT 10.0 (9.0-12.0) Seconds INR 1.0 (0.9-1.1) APTT 28.4 (21.0-31.0) Seconds PTT Ratio 1.1 Sodium 138 (136-145) mmol/L Potassium 3.4 L (3.5-5.1) mmol/L Chloride 106 (98-107) mmol/L Carbon Dioxide 22 (21-32) mmol/L Anion Gap 11.0 (3-11) BUN 16 (7-18) mg/dl Creatinine 1.08 (0.6-1.2) mg/dl Est Cr Clr Drug Dosing 56.3 ml/min Est GFR ( Amer) 60.7 ml/min Est GFR (Non-Af Amer) 52.3 ml/min BUN/Creatinine Ratio 15.2 (10-20) Glucose 126 H (70-99) mg/dl Calcium 10.1 (8.5-10.1) mg/dl Magnesium 2.3 (1.8-2.4) mg/dl Total Bilirubin 0.6 (0.2-1) mg/dl AST 19 (15-37) U/L ALT 26 (12-78) Alkaline Phosphatase 86 (45-117) U/L Troponin I < 0.015 (0-0.045) ng/ml Total Protein 8.4 H (6.4-8.2) gm/dl Albumin 4.2 (3.4-5.0) gm/dl Globulin 4.2 H (2.5-4.0) gm/dl Albumin/Globulin Ratio 1.0 (0.9-2) TSH 1.330 (0.300-4.500) uIu/ml Urine Color Urine Appearance (Clear) Urine pH (4.5-7.5) Ur Specific [place] (1.000-1.030) Urine Protein (Negative) Urine Glucose (UA) (Negative) Urine Ketones (Negative) Urine Blood (Negative) Urine Nitrite (Negative) Urine Bilirubin (Negative) Urine Urobilinogen (Negative) Ur Leukocyte Esterase (Negative) Urine WBC (Auto) (0-5) /hpf Urine RBC (Auto) (0-4) /hpf U Hyaline Cast (Auto) (0-5) /lpf U Epithel Cells (Auto) (0-5) /lpf Urine Bacteria (Auto) (Negative) SARS-CoV-2, RNA, NAAT (NEGATIVE) 08/01/21 08/01/21 Range/Units 10:55 11:52 WBC (4.8-10.8) K/uL RBC (4.2-5.4) M/uL Hgb (12.0-16.0) g/dL Hct (37-47) % MCV (80-100) fL MCH (25-34) pg MCHC (32-36) g/dL RDW Std Deviation (36.4-46.3) fL RDW Coeff of Digna (11.5-14.5) % Plt Count (130-400) K/uL MPV (7.4-10.4) fL Immature Gran % (Auto) % Neut % (Auto) % Lymph % (Auto) % [place] % (Auto) % Eos % (Auto) % Baso % (Auto) % Neut # (Auto) (1.4-6.5) K/uL Lymph # (Auto) (1.2-3.4) K/uL [place] # (Auto) (0.11-0.59) K/uL Eos # (Auto) (0-0.5) K/uL Baso # (Auto) (0-0.2) K/uL Immature Gran # (Auto) (0.00-0.02) K/uL PT (9.0-12.0) Seconds INR (0.9-1.1) APTT (21.0-31.0) Seconds PTT Ratio Sodium (136-145) mmol/L Potassium (3.5-5.1) mmol/L Chloride (98-107) mmol/L Carbon Dioxide (21-32) mmol/L Anion Gap (3-11) BUN (7-18) mg/dl Creatinine (0.6-1.2) mg/dl Est Cr Clr Drug Dosing ml/min Est GFR ( Amer) ml/min Est GFR (Non-Af Amer) ml/min BUN/Creatinine Ratio (10-20) Glucose (70-99) mg/dl Calcium (8.5-10.1) mg/dl Magnesium (1.8-2.4) mg/dl Total Bilirubin (0.2-1) mg/dl AST (15-37) U/L ALT (12-78) Alkaline Phosphatase (45-117) U/L Troponin I (0-0.045) ng/ml Total Protein (6.4-8.2) gm/dl Albumin (3.4-5.0) gm/dl Globulin (2.5-4.0) gm/dl Albumin/Globulin Ratio (0.9-2) TSH (0.300-4.500) uIu/ml Urine Color Yellow Urine Appearance Clear (Clear) Urine pH 7.5 (4.5-7.5) Ur Specific [place] 1.012 (1.000-1.030) Urine Protein Trace H (Negative) Urine Glucose (UA) Negative (Negative) Urine Ketones Negative (Negative) Urine Blood Negative (Negative) Urine Nitrite Negative (Negative) Urine Bilirubin Negative (Negative) Urine Urobilinogen Negative (Negative) Ur Leukocyte Esterase Negative (Negative) Urine WBC (Auto) 1-5 (0-5) /hpf Urine RBC (Auto) 0-4 (0-4) /hpf U Hyaline Cast (Auto) 1-5 (0-5) /lpf U Epithel Cells (Auto) 10-20 H (0-5) /lpf Urine Bacteria (Auto) Negative (Negative) SARS-CoV-2, RNA, NAAT NEGATIVE (NEGATIVE) Administered Medications Discontinued Medications Adenosine (Adenosine Iv Soln 3 Mg/Ml 2 Ml Vial) Confirm Administered Dose 18 mg IV .STK-MED ONE Stop: 08/01/21 09:51 Last Admin: 08/01/21 09:54 Dose: 12 mg Documented by: [id number] Adenosine (Adenosine Iv Soln 3 Mg/Ml 2 Ml Vial) 6 mg IV NOW STA Stop: 08/01/21 09:52 Last Admin: 08/01/21 09:52 Dose: 6 mg Documented by: [id number] Enoxaparin Sodium (Enoxaparin 100 Mg/1ml Syr) 90 mg SQ Q12H [facility] Stop: 08/31/21 14:29 Last Admin: 08/01/21 16:29 Dose: 90 mg Documented by: [id number] Sodium Chloride (Nss 1000ml) 1,000 mls @ 999 mls/hr IV .Q1H1M ONE Stop: 08/01/21 10:52 Last Infusion: 08/01/21 10:58 Dose: 0 mls/hr Documented by: [id number] Admin: 08/01/21 10:05 Dose: 999 mls/hr Documented by: [id number] Lorazepam (Ativan) 1 mg in 2 mls @ 2 mls/min IV NOW STA Stop: 08/01/21 09:59 Last Admin: 08/01/21 10:05 Dose: 2 mls/min Documented by: [id number] Lorazepam (Ativan) 1 mg in 2 mls @ 2 mls/min IV NOW STA Stop: 08/01/21 12:36 Last Admin: 08/01/21 12:50 Dose: 2 mls/min Documented by: [id number] Lorazepam (Lorazepam 2 Mg/4 Ml Vial) Confirm Administered Dose 2 mg .ROUTE .STK- MED ONE Stop: 08/01/21 10:00 Last Admin: 08/01/21 10:06 Dose: Not Given Documented by: [id number] Metoprolol Tartrate (Metoprolol Tartrate 1 Mg/Ml Vial) 5 mg IV NOW STA Stop: 08/01/21 09:59 Last Admin: 08/01/21 10:04 Dose: 5 mg Documented by: [id number] Metoprolol Tartrate (Metoprolol Tartrate 1 Mg/Ml Vial) Confirm Administered Dose 5 mg IV .STK-MED ONE Stop: 08/01/21 10:00 Last Admin: 08/01/21 10:05 Dose: Not Given Documented by: [id number] Metoprolol Tartrate (Metoprolol Tartrate 1 Mg/Ml Vial) 5 mg IV NOW STA Stop: 08/01/21 10:09 Last Admin: 08/01/21 10:12 Dose: 5 mg Documented by: [id number] Metoprolol Tartrate (Metoprolol Tartrate 1 Mg/Ml Vial) 5 mg IV NOW STA Stop: 08/01/21 12:36 Last Admin: 08/01/21 12:50 Dose: 5 mg Documented by: [id number] Metoprolol Tartrate (Metoprolol Tartrate 25 Mg Tab) 25 mg PO BID SAMANTHA Stop: 08/31/21 13:14 Last Admin: 08/01/21 14:21 Dose: 25 mg Documented by: [id number] Potassium Chloride (Potassium Chloride Pwd 20 Meq Pack) 20 meq PO ONE ONE Stop: 08/01/21 13:18 Last Admin: 08/01/21 14:21 Dose: 20 meq Documented by: [id number] Imaging Data Radiologist's Impression: Chest X-Ray 08/01/21 09:53 XR chest 1V portable CLINICAL HISTORY: Dysrhythmia. COMPARISON STUDY: 05/24/2014 TECHNIQUE: 1 view of the chest FINDINGS: Single frontal view of the chest demonstrates the cardiomediastinal silhouette to be within normal limits. The lungs are clear of alveolar opacities. There is no evidence for pleural effusion. There is no evidence for vascular congestion. There is no acute osseous pathology. IMPRESSION: No acute cardiopulmonary disease. ACT 112: Negative or not required by law. Electronically signed by: Jameson Rodrigues M.D. 08/01/2021 10:18 AM Blood Pressure Blood Pressure Findings: Elevated blood pressure Blood Pressure Disposition: Referred to patients primary care provider Discharge Plan Visit Data Chief Complaint: Arrhythmia/Palpitations Stated Complaint: WORKING OUT/HEART RATE WILL NOT LOWER ED Provider: Rachelle Smith Discharge Problem: Atrial fibrillation with RVR Patient Disposition: Admitted As Inpatient Discharge Instructions Interventions: ED Discharge Assessment Last Done: 08/01/21 14:45
== END 2021-08-01 16:30 | disposition home or self-care (01) ==
LOC: ED 09:34 → INTOOBSV 13:12 → EDINP 13:12